=== PATIENT | female | born 1970 | race Caucasian/White ===

== ENCOUNTER 2017-02-04 10:04 | Day surgery (SDC) | payer OTHER ==
[~2017-02-04 10:04] MED LIST: BACITRACIN 50,000 UNITS/10 ML SYR IRR ONE; BUPIVACAINE 0.5% 30 ML SDV ONE; CHLORHEXIDINE GLUC HIBICLENS 118 ML BTL TP ONE; LIDOCAINE 1% 30 ML SDV ONE; ROPIVACAINE HCL 20 MG/10 ML INJ EP ONE
[2017-02-04] MEDS ORDERED: LR 1,000 ML IV ONE (11:44)
[2017-02-04] MEDS ORDERED: PROPOFOL/EMULSION 500 MG/50 ML BOTTLE IV ONE (11:58)
[2017-02-04] MEDS ORDERED: fentaNYL 100 MCG/2 ML INJ ONE (11:58)
[2017-02-04] MEDS ORDERED: ONDANSETRON 4 MG/2 ML VIAL ONE (12:03)
[2017-02-04] MEDS ORDERED: LIDOCAINE 2% 5 ML SDV ONE (12:03)
[2017-02-04] MEDS ORDERED: MIDAZOLAM 2 MG/2 ML VIAL ONE (12:06)
--- NOTE | 2017-02-04 16:01 | GOP ---
[f rep st] OPERATIVE REPORT DATE OF OPERATION: 02/04/2017 SURGEON: Erna Christianson [facility] ANESTHESIOLOGIST: Serafin Huang MD. PREOPERATIVE DIAGNOSIS: Bone tumor, middle phalanx, 2nd digit, left foot. POSTOPERATIVE DIAGNOSIS: Bone tumor, middle phalanx, 2nd digit, left foot. PROCEDURE PERFORMED: Curettage of bone tumor and packing of defect with bone graft material and sta bilization of digit with K-wire, 2nd digit, left foot. FINDINGS: DESCRIPTION OF PROCEDURE: The patient presented to the hospital approximately 1-1/2 hours prior to foot surgery after having been n.p.o. past midnight. The patient's preoperative history and physica l and all studies were reviewed, and there was no contraindication to the proposed procedure. Clare lazo was given Ancef 1 g IV 0.5 hour prior to foot surgery. Patient has had no immediate reactions to the Ancef. The patient was taken to the OR room and placed on the OR table in a supine position where the appro priate anesthetic agents were administered. This was supplemented with a local anesthetic block per formed to the left forefoot. Utilizing a total of 12 cc of a 1:1 mixture of 0.2% Naropin with 1% li docaine plain. The left lower extremity was then prepped and draped in usual aseptic fashion and co carlo with a sterile stockinette. A sterile pneumatic ankle tourniquet was applied and padded well underneath with Webril. Utilizing elevation overlying Esmarch bandage, the tourniquet was inflated to a pressure of 225 mmHg. The foot was then lowered to the orthopedic table. A linear incision wa s then centered over the middle phalanx of the 2nd digit, extending to the level of the proximal int erphalangeal joint and the distal interphalangeal joint. The incision was deepened through the subc utaneous tissues to the level of the extensor tendon, taking care to preserve the neurovascular stru ctures. The extensor tendon was retracted medially, and the subcutaneous tissues were reflected off the lateral aspect of the middle phalanx. The periosteal tissue to the overlying lateral cortical wall of the middle phalanx was thinned and compromised. The lateral cortical wall of the middle pha lanx was soft. Utilizing a 15 blade, a rectangular window was easily created to the middle phalanx and excised. The integrity of the wall was compromised and fragmented. Utilizing a curette, the pravin ne cyst was debrided, and the bone was placed on the back table to be sent for pathologic evaluation . There are some areas of cortical weakness on inspection of the tumor to the middle phalanx, inclu ding a section to the lateral cortices and plantar cortices where an 18-gauge needle easily penetrat ed the bone without force. After a thorough but careful curettage of the bone tumor, removing all l oose fragments of bone, the surgical site was copiously irrigated with sterile saline, bacitracin so lution utilizing a syringe and 18-gauge needle. A decision was made to pack the middle phalanx with Bree and not to add an additional bone graft for bridging since the distal and proximal cortices remained intact, and the majority of the plantar cortex and medial wall was intact. For stabilizat ion, a 0.062 K-wire was advanced through the tip of the distal phalanx of the 2nd digit proximally, so as to course through the middle phalanx, extending into the proximal phalanx. The alignment and placement of the K-wire was checked with the C-arm and optimal. The surgical site was again copious ly irrigated with sterile saline and bacitracin solution after the packing of the defect was complet ed with the Bree. The subcutaneous tissues were reapproximated with 4-0 Vicryl. The tourniquet was released, and there was immediate capillary refill to all digits and hemostasis. The skin was r eapproximated with 4-0 Prolene utilizing interrupted horizontal mattress sutures. Antibiotic ointme nt was placed to the tip of the K-wire. The end of the K-wire was bent to 90 degrees, and a cap was applied. A mildly compressive dry sterile gauze dressing was applied with Xeroform, 4 x 4 gauze, K ling, and an Kory wrap. Patient tolerated the procedure and anesthesia well and was transferred to the recovery room with vi fabienne signs stable and vascular status intact to the left lower extremity. In the recovery room, the patient received postoperative oral and written home care instructions. The procedure went well wit hout complications. The patient is scheduled for 1st postoperative visit in 3 days. Please call e office earlier if any questions or problems should arise. A prescription had been given for Perco cet to take postoperatively as prescribed for pain. The patient is instructed to wear the cast boot at all times for protection of the digit, and she is permitted to bear weight as tolerated. The monae chung was dispensed a Cryo/Cuff and instructed on its usage. /[id number]/MODL
== END 2017-02-04 15:56 | disposition home or self-care (01) ==
LOC: FSGY 10:04
PROVIDERS: ATTEND Podiatrist
PROC: 0QBR0ZZ Excision of Left Toe Phalanx, Open Approach (ICD-10-PCS; principal; 2017-02-04 11:15)
PROC: 0QH Lower Bones, Insertion (ICD-10-PCS; principal; 2017-02-04 11:15)
PROC: 0QHY0MZ Insertion of Bone Growth Stimulator into Lower Bone, Open Approach (ICD-10-PCS; principal; 2017-02-04 11:15)
DX: D16.32 Benign neoplasm of short bones of left lower limb (principal); M84.47 Pathological fracture, ankle, foot and toes; Z85.3 Personal history of malignant neoplasm of breast; Z88.0 Allergy status to penicillin
CPT/HCPCS: 28108; 73630; C1769; J0690; J2250; J2405; J2704; J2795; J3010

== ENCOUNTER 2018-01-30 08:49 | Emergency (ER) | payer OTHER ==
--- NOTE | 2018-01-30 09:12 | EDPHY ---
H & P Time Seen by Provider: 01/30/18 09:07 HPI/ROS: Chief complaint. Urinary retention HPI. 47-year-old female here with inability to urinate beginning this morning. She has had difficulty starting urination for the past 2 months. She has been seen by her PCP. She has her 1st Urology appointment February 04. She has not had similar symptoms were she was not able to urinate. Her last urination was last night and then this morning she tried for about 2 hr but could not urinate. She has had some burning sensation though did have a normal urinalysis 3-4 weeks ago. No fever or flank pain. Discomfort is in the suprapubic area and feels like full bladder. ROS Constitutional. no fever/chills, no weakness Eyes. no problems with vision ENT. no sore throat, no nasal drainage Cardiovascular. no chest pain Respiratory. no shortness of breath, no cough Abdominal. Suprapubic abdominal pain . Unable to urinate MS. no calf pain/swelling, no neck/back pain, no joint pain Skin. no rash Lymph. no swollen glands Neuro. no headache, no dizziness, no difficulty walking or with speech Past Medical/Surgical History: Breast cancer Social History: , nonsmoker, no alcohol Smoking Status: Never smoked Physical Exam: General Appearance: Alert well-developed female moderate distress vital signs significant for blood pressure elevated at 180/112 Eyes: Pupils equal and round no pallor or injection. ENT, Mouth: Mucous membranes are moist. Respiratory: There are no retractions, lungs are clear to auscultation. Cardiovascular: Regular rate and rhythm. Gastrointestinal: Abdomen is soft with suprapubic tenderness and fullness. Neurological: Awake and alert, sensory and motor exams grossly normal. Skin: Warm and dry, no rashes. Musculoskeletal: Neck is supple nontender. Extremities symmetrical, full range of motion. Psychiatric: Patient is oriented X 3, there is no agitation. Constitutional: Initial Vital Signs Temperature (C) 36.7 C 01/30/18 08:52 Heart Rate 90 01/30/18 08:52 Respiratory Rate 18 01/30/18 08:52 Blood Pressure 180/112 H 01/30/18 08:52 O2 Sat (%) 97 01/30/18 08:52 O2 Delivery Mode Room Air Allergies/Adverse Reactions: Penicillins Allergy (Verified 02/03/17 13:34) Hives Home Medications: Medication Instructions Recorded NK [No Known Home Meds] 01/30/18 Medical Decision Making - Diagnostics Imaging Results: Imaging Impressions Abdomen CT 01/30/18 10:03 Impression: 1. Large heterogeneous uterus containing numerous leiomyomas. Dominant central uterine leiomyoma versus hemorrhage into uterine leiomyoma measures 8 x 8 x 6 cm. 2. Compression of the urinary bladder by the enlarged uterus and minimal bilateral pelvocaliectasis. 3. No evidence of metastatic breast cancer. Findings discussed with Emergency Department physician, Dr. Beny Mauricio on January 30, 2018 at 1225 hours. enlarged uterus with leiomyomas. Maybe hemorrhage into one. mass effect on urinary bladder. reviewed by me and discussed with Dr. Talamantes Procedures: Bladder scan shows greater than 600 mL in the bladder Boswell catheter is placed with about 900 mL out. It is sent for urinalysis ED Course/Re-evaluation: On serial evaluations patient is stable. The catheter is draining well. She has no pain. Patient and I discussed imaging and lab results. She and I discussed treatment plan including criteria for return importance of follow-up and further evaluation. She expresses understanding and agreement I consulted and discussed the case with , gynecology who agrees with treatment plan. She would like to see the patient in the office on Friday if not this afternoon. Differential Diagnosis: This appears to be an obstructive cause of acute urinary retention. The patient has enlarged uterus and has been having some urinary difficulty over the past couple months. It appears that there may be a central hemorrhage into 1 of the fibroid tumors today causing increased mass effect. No evidence for urinary tract infection or hydronephrosis. - Data Points Laboratory Results: Laboratory Results 01/30/18 10:08 01/30/18 10:08 01/30/18 01/30/18 01/30/18 10:08 10:08 09:10 WBC 4.19 10^3/uL 10^3/uL (3.80-9.50) RBC 4.52 10^6/uL 10^6/uL (4.18-5.33) Hgb 11.1 g/dL L g/dL (12.6-16.3) Hct 35.2 % L % (38.0-47.0) MCV 77.9 fL L fL (81.5-99.8) MCH 24.6 pg L pg (27.9-34.1) MCHC 31.5 g/dL L g/dL (32.4-36.7) RDW 16.0 % H % (11.5-15.2) Plt Count 351 10^3/uL 10^3/uL (150-400) MPV 8.9 fL fL (8.7-11.7) Neut % (Auto) 66.6 % % (39.3-74.2) Lymph % (Auto) 25.3 % % (15.0-45.0) Morrison % (Auto) 5.5 % % (4.5-13.0) Eos % (Auto) 1.2 % % (0.6-7.6) Baso % (Auto) 1.2 % % (0.3-1.7) Nucleat RBC Rel Count 0.0 % % (0.0-0.2) Absolute Neuts (auto) 2.79 10^3/uL 10^3/uL (1.70-6.50) Absolute Lymphs (auto) 1.06 10^3/uL 10^3/uL (1.00-3.00) Absolute Monos (auto) 0.23 10^3/uL L 10^3/uL (0.30-0.80) Absolute Eos (auto) 0.05 10^3/uL 10^3/uL (0.03-0.40) Absolute Basos (auto) 0.05 10^3/uL 10^3/uL (0.02-0.10) Absolute Nucleated RBC 0.00 10^3/uL 10^3/uL (0-0.01) Immature Gran % 0.2 % % (0.0-1.1) Immature Gran # 0.01 10^3/uL 10^3/uL (0.00-0.10) Sodium 142 mEq/L mEq/L (135-145) Potassium 4.4 mEq/L mEq/L (3.3-5.0) Chloride 107 mEq/L mEq/L (97-110) Carbon Dioxide 21 mEq/l L mEq/l (22-31) Anion Gap 14 mEq/L mEq/L (8-16) BUN 11 mg/dL mg/dL (7-23) Creatinine 0.6 mg/dL mg/dL (0.6-1.0) Estimated GFR > 60 Glucose 83 mg/dL mg/dL (70-100) Calcium 8.6 mg/dL mg/dL (8.5-10.4) Urine Color PALE YELLOW Urine Appearance CLEAR Urine pH 5.0 (5.0-7.5) Ur Specific [place] 1.004 (1.002-1.030) Urine Protein NEGATIVE (NEGATIVE) Urine Ketones NEGATIVE (NEGATIVE) Urine Blood 2+ H (NEGATIVE) Urine Nitrate NEGATIVE (NEGATIVE) Urine Bilirubin NEGATIVE (NEGATIVE) Urine Urobilinogen NEGATIVE EU EU (0.2-1.0) Ur Leukocyte Esterase NEGATIVE (NEGATIVE) Urine RBC 1-3 /hpf /hpf (0-3) Urine WBC 1-3 /hpf /hpf (0-3) Ur Epithelial Cells NONE SEEN /lpf /lpf (NONE-1+) Urine Glucose NEGATIVE (NEGATIVE) Medications Given: Discontinued Medications Sodium Chloride (Ns) 1,000 mls @ 0 mls/hr IV EDNOW ONE; Wide Open PRN Reason: Protocol Stop: 01/30/18 10:04 Last Admin: 01/30/18 10:11 Dose: 1,000 mls Departure - Departure Disposition: Home, Routine, Self-Care Clinical Impression: Acute urinary retention, Uterine fibroid Condition: Good Instructions: Boswell Catheter Placement and Care (ED), [facility] Patient Education, Infection Prevention Additional Instructions: Called Dr. Juarez's office today for an appointment yet this afternoon or more likely on Friday. Catheter in until see . Return sooner for worsening symptoms. Referrals: NONE *PRIMARY CARE P,. [Primary Care Provider] - As per Instructions Lupe Juarez DO [Doctor of Osteopathy] - 2-3 days, call for appt.
[2018-01-30] MEDS ORDERED: NS 1,000 ML IV ONE (10:03)
[2018-01-30 10:40] LABS: PLATELET COUNT 351 10^3/uL (150-400)
[2018-01-30] MEDS ORDERED: IOPAMIDOL (ISOVUE-300) 100 ML BTL ONE (11:05)
[2018-01-30 13:43] VITALS: BP 130/70
== END 2018-01-30 13:41 | disposition home or self-care (01) ==
PROC: 0T9B70Z Drainage of Bladder with Drainage Device, Via Natural or Artificial Opening (ICD-10-PCS; principal; 2018-01-30)
DX: R33.9 Retention of urine, unspecified (principal); D25.9 Leiomyoma of uterus, unspecified; E86.9 Volume depletion, unspecified; Z85.3 Personal history of malignant neoplasm of breast
CPT/HCPCS: Q9967